=== PATIENT | female | born 1980 | race Caucasian/White ===

== ENCOUNTER 2021-09-13 14:03 | Outpatient (CLI) | payer BC | END 2021-09-13 14:04 | disposition home or self-care (01) | LOC: CSHLAB 14:03 | PROVIDERS: ATTEND Obstetrics & Gynecology | DX: Z01.812 Encounter for preprocedural laboratory examination (principal); Z20.822 Contact with and (suspected) exposure to COVID-19 | CPT/HCPCS: 84703; 85027; 86850; 86900; 86901; U0003; U0005 ==

== ENCOUNTER 2022-10-23 12:18 | Outpatient (CLI) | payer BC | END 2022-10-23 12:19 | disposition home or self-care (01) | LOC: CSHMAMMO 12:18 | PROVIDERS: ATTEND Nurse Practitioner Family | DX: Z12.31 Encounter for screening mammogram for malignant neoplasm of breast (principal); Z98.82 Breast implant status | CPT/HCPCS: 77063; 77067 ==